=== PATIENT | male | born 1975 | race Caucasian/White ===

== ENCOUNTER → 2017-02-03 | Outpatient (CLI) | payer OTHER ==
[~2017-02-03] MED LIST: IBUPROFEN800 MG PO; NO MEDICATIONS; PERCOCET5/325 PO; VOLTAREN75 MG PO
--- NOTE | ~2017-02-03 | CR230 ---
[facility] A Service of [facility] & [facility] RADIOLOGY TEXT RESULTS PATIENT: JAKY DICK LOCATION: SRA : 77 UNIT #: [id number] AGE: [address]: Dejuan Linares MD SEX: M ORDER DR: [id number] [place] [id number] O MR#: [id number] Acc #: [id number] NAME: JAKY DICK : 1975 SEX: M STUDY DATE/TIME: 02/03/2017 9:45 UNIT: SRAD ROOM: STUDY DESCRIPTION: CR Shoulder Min 2 View Rt Attending Physician: Dejuan Linares M.D. Referring Physician: Dejuan Linares M.D. Ordering Physician: Dejuan Linares M.D. Primary Care Physician: Dejuan Linares M.D. MEDICAL IMAGING REPORT This report is preliminary unless electronic signature is present. EXAM Right shoulder, 02/03/2017, [facility]. HISTORY 41-year-old male patient with unexplained right shoulder pain, pain anterior joint space. Symptoms approximately 1 month. 20 year smoking history. FINDINGS 3 views of the right shoulder demonstrate normal glenohumeral joint. I see no cystic erosions, joint space narrowing, or osteophyte formation. Mineralization is preserved and cortex intact. Soft tissues appear normal. IMPRESSION Negative right shoulder. Dictated by... Hans Wade M.D. THIS IS AN ELECTRONICALLY VERIFIED REPORT Hans Wade M.D. at 02/03/2017 12:46 PM MARTHA/sung TD: 02/03/2017 11:59 JOB #: [id number] MEDICAL IMAGING REPORT Page 1 of 1
== END | disposition home or self-care (01) ==
LOC: SRAD 08:58
DX: M25.511 Pain in right shoulder (principal)
CPT/HCPCS: 73030

== ENCOUNTER → 2017-03-13 | Outpatient (CLI) | payer OTHER ==
--- NOTE | ~2017-03-13 | CR181 ---
[facility] A Service of [facility] & [facility] RADIOLOGY TEXT RESULTS PATIENT: JAKY DICK LOCATION: [facility] : [birth year] UNIT #: [id number] AGE: [address]: Kenyetta Espinoza BROADCAST MAINTENANCE ENGINEER SEX: M ORDER DR: [id number] [place] [id number] O MR#: [id number] Acc #: [id number] NAME: JAKY DICK : 1975 SEX: M STUDY DATE/TIME: 03/13/2017 10:25 UNIT: SRAD ROOM: STUDY DESCRIPTION: CR Lumbar Spine 2 or 3 Views Attending Physician: Kenyetta Espinoza A.P.R.N. Referring Physician: Kenyetta Espinoza A.P.R.N. Ordering Physician: Kenyetta Espinoza A.P.R.N. Primary Care Physician: eDjuan Linares M.D. MEDICAL IMAGING REPORT This report is preliminary unless electronic signature is present. EXAM Lumbar spine 3 views 03/13/2017 HISTORY Low back pain for 1 month with no known injury. FINDINGS 3 views of the lumbar spine. The straight no fracture. The posterior vertebral body line is intact and there is no anterolisthesis or retrolisthesis. There is mild disc space narrowing at L3-4 and L5-S1. Small anterior osteophytes are seen from L3-L5 and there is degenerative change involving articular facets. Mild scoliosis of the lumbar spine is seen on the anterior view. IMPRESSION Minimal degenerative change and scoliosis of the lumbar spine. No acute abnormality. Dictated by... Michael Fernando M.D. THIS IS AN ELECTRONICALLY VERIFIED REPORT Michael Fernando M.D. at 03/14/2017 8:08 AM KRT/to TD: 03/13/2017 15:43 JOB #: [id number] MEDICAL IMAGING REPORT Page 1 of 1
== END | disposition home or self-care (01) ==
LOC: SRAD 10:18
DX: M54.5 Low back pain (principal); M47.896 Other spondylosis, lumbar region; M41.9 Scoliosis, unspecified
CPT/HCPCS: 72100